=== PATIENT | male | born 1970 | race Two or more races ===

== ENCOUNTER 2022-07-15 09:31 | Emergency (ER) | payer OTHER ==
[~2022-07-15] VITALS: Ht 193 cm; Wt 143.8 kg
[2022-07-15] MEDS ORDERED: SKELAGESIC (09:48)
[2022-07-15] MEDS ORDERED: IRON236 MG (09:49)
[2022-07-15] MEDS ORDERED: BUTALB-ASPIRIN1 EACH PO (14:44)
== END 2022-07-15 15:21 | disposition home or self-care (01) ==
LOC: ER 09:31 → EDBD 09:35 → ER 09:35
DX: R42 Dizziness and giddiness (principal); G44.209 Tension-type headache, unspecified, not intractable

== ENCOUNTER 2025-04-29 21:16 | Emergency (ER) | payer OTHER ==
[~2025-04-29] VITALS: Ht 193 cm; Wt 145.1 kg
[~2025-04-29 21:16] MED LIST: BUTALB-ASPIRIN1 EACH PO; IRON236 MG; SKELAGESIC
[2025-04-29] MEDS ORDERED: FAMOTIDINE/PF 20 MG in 0.9 % SODIUM CHLORIDE 8 ML IV PUSH STA (22:25)
[2025-04-29] MEDS ORDERED: HYOSCYAMINE SULFATE 0.125 MG TAB.SUBL SL ONE (22:30)
[2025-04-29] MEDS ORDERED: HYOSCYAMINE SULFATE 0.125 MG TAB.SUBL ONE (22:37)
[2025-04-29] MEDS ORDERED: FAMOTIDINE/PF 20 MG/2 ML VIAL ONE (22:38)
[2025-04-29 23:07] LABS: BASO % 0.1 % (0.1-1.2); EOS # 0.01 (0.04-0.54); EOS % 0.1 % (0.7-7.0); HEMATOCRIT 42.9 % (40.1-51.0); HEMOGLOBIN 13.8 g/dL (13.7-17.5); LYMPH # 0.58 (1.18-3.74); LYMPH % 8.1 % (19.3-53.1); MONO # 0.23 (0.24-0.82); MONO % 3.2 % (4.7-12.5); NEUT # 6.31 (1.56-6.13); NEUT % 88.4 % (34.0-71.1); PLATELET COUNT 243 K/uL (163-369); RED BLOOD COUNT 5.74 M/uL (4.63-6.08); RED CELL DISTRIBUTION WIDTH 15.1 % (11.6-14.4)
[2025-04-29 23:38] LABS: BILIRUBIN TOTAL 0.51 mg/dL (0.3-1.2); BILIRUBIN,CONJUGATED 0.16 mg/dL (0.0-0.2); BILIRUBIN,UNCONJUGATED 0.35 mg/dL (0.0-0.6); CALCIUM 9.2 mg/dL (8.5-10.1); CREATININE SERUM 1.05 mg/dL (0.70-1.30); GFR 73.33; GLOBULINA 3.8 G/DL (2.4-3.5); POTASSIUM 4.04 mEq/L (3.5-5.1); TOTAL PROTEIN 7.8 gm/dL (6.4-8.2)
[2025-04-30] MEDS ORDERED: HYOSCYAMINE SULFATE 0.125 MG TAB.SUBL ONE (02:43)
[2025-04-30] MEDS ORDERED: ONDANSETRON 4 MG TAB.RAPDIS PO ONE (02:43)
[2025-04-30] MEDS ORDERED: PHAZYME500 MG PO (02:55)
[2025-04-30] MEDS ORDERED: PROTONIX40 MG PO (02:55)
[2025-04-30] MEDS ORDERED: LEVSIN/SL0.125 MG SL (02:55)
[2025-04-30] MEDS ORDERED: PEPCID40 MG PO (02:55)
== END 2025-04-30 03:02 ==
LOC: ER 21:41
PROVIDERS: General Practice
DX: R10.9 Unspecified abdominal pain (principal); I10 Essential (primary) hypertension; Z91.013 Allergy to seafood